=== PATIENT | female | born 1995 | race Caucasian/White ===

== ENCOUNTER 2019-08-07 14:55 | Inpatient (IN) ==
--- NOTE | 2019-08-07 11:28 | OB/GYN History & Physical ---
Date of Encounter: 08/07/19 Time of Encounter: 11:24 Assessment and Plan (1) 38 weeks gestation of Current visit: Yes Status: Acute (2) SROM (spontaneous rupture of membranes) Current visit: Yes Status: Acute Admit for expectant management. Intermittent monitoring with ambulation. Allow pt to pump breasts to stimulate contractions. Will consider pitocin augmentation if needed. Epidural if requested. Anticipate . History of Present Illness Chief complaint: SROM HPI: Ms. Roach is a 24 year old female presenting at 38w0d with c/o leaking clear fluid since 0600 this am. She reports she has been having irregular contractions for the last week and this has continued this am. She noticed that her underwear were wet when she got up around 0600 this am. This has been uncomplicated. She denies any other complaints. O positive Rubella and varicella immune Serologies negative GC/CT negative GBS negative Past Med Surg Social Fam HX - Past Medical History Medical history: no medical history - Past Surgical History Surgical History: no surgical history - Social History Smoking Status: Never smoker Alcohol use: none Drug use: none Obstetrical History - Pregnancies : 1 Medications and Allergies Lactobacillus Combo No.10 [Probiotic] 1 tab PO DAILY 08/07/19 [History] Pnv No.95/Ferrous Fum/Folic AC [ Caplet] 1 tab PO DAILY 08/07/19 [History] Review of System OB All systems PM: reviewed and no additional remarkable complaints except as stated Exam - Constitutional Constitutional: well developed, well nourished, no acute distress, average body habitus - HEENT HEENT: Mucus Membranes Moist - Neck Neck exam: normal inspection - Lungs Respiratory exam: CTAB - Cardiovascular Cardiovascular exam: RRR, +S1, +S2 - Abdomen Abdomen: Present: gravid, non tender - Extremities Extremities exam: normal inspection - Vulva Vulva: bilateral: normal - Cervix Dilation: 4 Effacement: 80 Station: -1 - Anus/Rectum Anus/Rectum: Present: normal perianal skin - Comments Comments: SSE +poolong, + nitrazine, + ferning Results All other labs normal.
--- NOTE | 2019-08-07 13:01 | Anesthesia Evaluation PreOp ---
Date of Encounter: 08/07/19 Time of Encounter: 12:50 - Past History Planned Operation: JIM Cardiac History: Denies any Significant Hx Pulmonary History: Denies Any Significant HX MACHINE WORKER History: Denies Any Significant HX Other Medical History: Other (history of chronic kidney infections) Anesthesia History: No Prior Anesthetic Complications, Past Anesthesia ([place] teeth, cystoscopy) : Yes Alcohol Use: none Drug use: none Medications and Allergies Lactobacillus Combo No.10 [Probiotic] 1 tab PO DAILY 08/07/19 [History] Pnv No.95/Ferrous Fum/Folic AC [ Caplet] 1 tab PO DAILY 08/07/19 [History] Allergy/AdvReac Type Severity Reaction Status Date / Time No Known Allergies Allergy Verified 08/07/19 11:25 - Meds/Allergy Pre-op Review Medications Reviewed: Yes Allergies Reviewed: Yes Beta Blockers on Current Med List: No Anesthesia Exam BP 136/79 P 88 R 16 T 97.9 Height: 5'7" Weight: 94.7kg NPO (# of Hours): 4 Pain Scale: 0 Pain Scale Used: Numeric (1 - 10) - HEENT Pupil (Motor): Pupils equal Mallampati: II Teeth: Normal Oral Opening: Greater than 3 - MACHINE WORKER LOC: Oriented MACHINE WORKER Motor: Normal RUE, Normal LUE, Normal RLE, Normal LLE, Normal Face MACHINE WORKER Sensory: Normal: RUE, LUE, RLE, LLE, Face - Cardiac Rhythm: Regular Murmur: None JVD: No Carotid Bruit: No - Pulmonary Breath Sounds: bilateral Clear Respiratory Effort: Symmetrical Anesthesia Assess/Plan ASA Score: 2 Level of consciousness: Cooperative, Oriented, Tranquil Anesthetic Plan: Epidural Autologous Blood: No Monitoring Plan: Standard Monitors Recovery Plan: Other
[~2019-08-07 14:55] MED LIST: *HR* FentaNYL (PF) 100 MCG/2 ML VIAL EP ONE; *HR* Nalbuphine 10 MG/ML AMPUL IVP PRN; EPHEDrine 50 MG/ML VIAL IVP PRN; Epidural Premix (fent/bupiv) 110 ML EP SCH; Famotidine 20 MG/2 ML VIAL IVP PRN; Metoclopramide 10 MG/2 ML VIAL IVP PRN; Naloxone 0.4 MG/ML INJ IVP PRN; Ondansetron 4 MG/2 ML VIAL IVP PRN; Ropivacaine/PF 0.2% 20 ML VIAL EP ONE
[2019-08-07] MEDS ORDERED: Oxytocin 20 units/ LR 1000 mL 20 UNIT/1,000 ML BAG IVC SCH ×2 (15:00→23:01)
[2019-08-07 15:25] LABS: Basophils % 0.2 %; Eosinophils # 0.1 K/mcL (0.0-0.6); Eosinophils % 0.5 %; Hematocrit 36.1 % (35.3-44.9); Hemoglobin 11.5 g/dL (11.5-15.4); Lymphocytes # 1.9 K/mcL (0.6-4.6); Mean Corpuscular HGB Conc 31.9 g/dL (31.6-35.5); Mean Corpuscular Hemoglobin 27.6 pg (28.0-33.3); Mean Corpuscular Volume 86.8 fL (83.0-100.0); Mean Platelet Volume 10.2 fL (9.4-12.4); Monocytes # 0.8 K/mcL (0.0-1.3); Monocytes % 6.1 %; Neutrophils # 9.5 K/mcL (1.6-8.9); Platelet Count 314 K/mcL (140-400); Red Blood Count 4.16 M/mcL (3.82-4.97); Red Cell Distribution Width 14.2 % (11.5-14.5); Segmented Neutrophils % 77.2 %; White Blood Count 12.3 K/mcL (4.3-11.1)
--- NOTE | 2019-08-07 16:03 | OB Labor Progress Note ---
Date of Encounter: 08/07/19 Time of Encounter: 16:02 Labor Progress Note - Subjective Subjective: Pt reports she is having more contractions. - Vital Signs Vital Signs: VSS - Cervix Cervix: 4/80/-1 - Heart Tones Heart Tones: Category I - [place]: irregular - Plan Plan: Will begin pitocin augmentation
[2019-08-07] MEDS: Ringers Solution, Lactated 1,000 ML IVC SCH ×2 (16:39→18:20)
[2019-08-07] MEDS ORDERED: *HR* FentaNYL (PF) 100 MCG/2 ML VIAL ONE (17:29)
--- NOTE | 2019-08-07 18:14 | Anesthesia Procedures ---
Date of Encounter: 08/07/19 Time of Encounter: 17:35 Procedures: Anesthesia - Epidural/Spinal Patient ID/Chart reviewed: Yes Patient examined: Yes OB Eval: Gestational age: 38 OB Eval: : 1 OB Eval: Hx Para: 0 OB Eval: Dilated at (cm): 7 OB Eval: Contractions: Non-stressed pattern Consent Obtained: Yes Supplemental Oxygen: None/Room Air Site Prep: Aseptic Technique, Sterile prep and drape, Povidone-Iodine 1% Patient position: upright Local Anesthetic: Lidocaine 1% Amount of Local Anesthetic used: 3 Touhy Needle Gauge: 18 Touhy Needle Depth (cm): 6 Catheter Depth at Skin (cm): 14 Test Dose (1.5% Lido + Epi): Volume given (mls): 3 Test Dose Result: Negative Loading Dose: Fentanyl (mcg): 100 Loading Dose: Other: Ropivicaine 0.2% 5ml, 3ml Normal saline Loading Dose Administered: Thru Catheter Infusion Med: 0.125% Bupivacaine w/ 2 mcg/ml Fentanyl Infusion Rate (mls/hr): [address]: Tegaderm, Tape Interspace Used: L4-L5 Loss of Resistance (SHAHEED): Yes Blood: No CSF: No Paresthesia: No Procedure: JIM placed 1st pass in upright position. SHAHEED achieved with normal saline. Catheter threaded with ease to 14cm at the skin. Test dose negative. Pt stated comforf following bolus dose administration. VSS throughout. Vitals + FHT's: 1735 BP 133/88 P 103 R 20 1800 BP 139/59 P 94 R 16
--- NOTE | 2019-08-07 20:48 | OB/GYN Procedure Note ---
Delivery - Delivery Date: 08/07/19 Provider: Adore Medina Intrapartum events: none Delivery induction: none Delivery augmentation: pitocin Delivery monitor: external FHT, external uterine Anesthesia: epidural Quantitated Blood Loss: 50 - Infant (s) A Infant Delivery Date: 08/07/19 Delivery Time: 20:17 Presentation: vertex Position: JAS Route of delivery: Gender: Female Viability: Viable at 1 minute: 8 at 5 mins: 9 Shoulder Dystocia: not encountered - Repair Laceration Description: None - Complications Delivery complications: none Delivery comments: Pt presented to L&D following SROM dulce 0600. She received an epidural and underwent pitocin augmentation. She then progressed well to over intact perineum for viable female infant with apgars 8 at one minute and 9 at five minutes. After pulsations ceased the cord was clamped and cut and the placenta delivered spontaneous and intact. EBL 50ml. No lacerations noted. - Disposition Mom disposition: stable in LDR disposition: stable in LDR
[2019-08-07] MEDS ORDERED: Lanolin 7 G OINT...G. TP PRN (23:01)
[2019-08-07] MEDS ORDERED: Acetaminophen 325 MG TABLET PO PRN (23:01)
[2019-08-07] MEDS ORDERED: Rho Immune Globulin 1,500 UNIT SYRINGE IM PRN (23:01)
[2019-08-07] MEDS ORDERED: Benzocaine/Menthol 56 GM AEROSOL SPRAY TP PRN (23:01)
[2019-08-08] MEDS: Ibuprofen 600 MG TABLET PO PRN ×2 (00:38→08:20)
[2019-08-08] MEDS ORDERED: Prenatal Vit/FA 1 EACH TABLET PO SCH (09:00)
--- NOTE | 2019-08-08 12:59 | Discharge Summary ---
Date of Encounter: 08/08/19 Time of Encounter: 12:56 - Discharge Diagnosis (1) Status post vaginal delivery Priority: Primary Status: Acute Comments: Patient meeting day one milestones. Pain well-controlled with prescribed medications. Voiding without difficulty, tolerating regular diet, bleeding light. No bowel movement yet. Anticipate discharge tonight (2) Breast feeding status of mother Priority: Secondary Status: Acute Comments: support as needed. We will provide breast pump prescription if needed. - Discharge Medications Prescriptions: New Breast Pump [BREAST PUMP] 1 each .ROUTE AD #1 each Docusate [Colace] 100 mg PO BID capsule Benzocaine/Menthol [place] [Dermoplast [place]] 1 appl TP QID PRN aerosol PRN Reason: See Comments Lanolin [Lansinoh] 1 appl TP Q4HR PRN oint...g. PRN Reason: Ibuprofen [Motrin] 600 mg PO Q6HR PRN #60 tablet PRN Reason: Cramping Acetaminophen [Tylenol] 650 mg PO Q6HR PRN tablet PRN Reason: Mild Pain Continued Pnv No.95/Ferrous Fum/Folic AC [ Caplet] 1 tab PO DAILY Lactobacillus Combo No.10 [Probiotic] 1 tab PO DAILY Home Medications: Lactobacillus Combo No.10 [Probiotic] 1 tab PO DAILY 08/07/19 [History] Pnv No.95/Ferrous Fum/Folic AC [ Caplet] 1 tab PO DAILY 08/07/19 [History] Acetaminophen [Tylenol] 650 mg PO Q6HR PRN tablet 08/08/19 [Rx] Benzocaine/Menthol [place] [Dermoplast [place]] 1 appl TP QID PRN aerosol 08/08/19 [Rx] Breast Pump [BREAST PUMP] 1 each .ROUTE AD #1 each 08/08/19 [Rx] Docusate [Colace] 100 mg PO BID capsule 08/08/19 [Rx] Ibuprofen [Motrin] 600 mg PO Q6HR PRN #60 tablet 08/08/19 [Rx] Lanolin [Lansinoh] 1 appl TP Q4HR PRN oint...g. 08/08/19 [Rx] Allergies/Adverse Reactions: Allergy/AdvReac Type Severity Reaction Status Date / Time No Known Allergies Allergy Verified 08/07/19 11:25 Data Procedures and tests throughout hospitalization: Laboratory Tests 08/07/19 12:30 WBC 12.3 H RBC 4.16 Hgb 11.5 Hct 36.1 MCV 86.8 MCH 27.6 L MCHC 31.9 RDW 14.2 Plt Count 314 MPV 10.2 Immature Gran % 1.0 Seg Neutrophils % 77.2 Lymphocytes % 15.0 Monocytes % 6.1 Eosinophils % 0.5 Basophils % 0.2 Neutrophils # 9.5 H Lymphocytes # 1.9 Monocytes # 0.8 Eosinophils # 0.1 Basophils # 0.0 Labs on day of discharge: Labs from last 24 hours 08/07/19 12:30 WBC 12.3 H RBC 4.16 Hgb 11.5 Hct 36.1 MCV 86.8 MCH 27.6 L MCHC 31.9 RDW 14.2 Plt Count 314 MPV 10.2 Immature Gran % 1.0 Seg Neutrophils % 77.2 Lymphocytes % 15.0 Monocytes % 6.1 Eosinophils % 0.5 Basophils % 0.2 Neutrophils # 9.5 H Lymphocytes # 1.9 Monocytes # 0.8 Eosinophils # 0.1 Basophils # 0.0 Date of admission: 08/07/19 14:55 Primary care physician: PCP NONE Consults: 08/07/19 23:01 Consult to [employer] [CONS] Routine Comment: Vaginal delivery, consult needed Discharging clinician: Fanny Jolley Anticipated date of discharge: 08/08/19 - Patient Status Disposition: Home, Self-Care Condition: Good Functional capacity at discharge: independent ambulation Overall status at discharge: patient is progressing back to baseline - Discharge Instructions Follow Up With: NONE,PCP [Primary Care Provider] - Adore Medina, CNM [Non-Partnered Physician] - - Diet and Activity Activity: increase activity as tolerated Diet: regular diet Hospital Course Reason for admission: active labor, rupture of membranes Delivery: Episiotomy: none Laceration: none Other procedures: none complications: none Discharge diagnosis: IUP at term delivered [place] baby: female Hospital course: Delivery Date: 08/07/19 Provider: Adore Medina Intrapartum events: none Delivery induction: none Delivery augmentation: pitocin Delivery monitor: external FHT, external uterine Anesthesia: epidural Quantitated Blood Loss: 50 - (s) Infant A Delivery Date: 08/07/19 Infant Delivery Time: 20:17 Presentation: vertex Position: JAS Route of delivery: Gender: Female Viability: Viable at 1 minute: 8 at 5 mins: 9 Shoulder Dystocia: not encountered - Repair Laceration Description: None - Complications Delivery complications: none Delivery comments: Pt presented to L&D following SROM dulce 0600. She received an epidural and underwent pitocin augmentation. She then progressed well to over intact perineum for viable female infant with apgars 8 at one minute and 9 at five minutes. After pulsations ceased the cord was clamped and cut and the placenta delivered spontaneous and intact. EBL 50ml. No lacerations noted. - Disposition Mom disposition: stable in LDR [place] disposition: stable in LDR Time Attestation: Total time spent providing and/or coordinating discharge services: Time Spent: Less than 30 minutes Exam - Constitutional Vitals: Temp Pulse Resp BP Pulse Ox 97.5 F L 71 16 111/56 98 08/08/19 08:24 08/08/19 08:24 08/08/19 08:24 08/08/19 08:24 08/08/19 08:24 General appearance IM: A&O X 3, pleasant, no acute distress, answers questions appropriately - Respiratory Respiratory exam: Present: CTAB. Absent: respiratory distress - Cardiovascular Cardiovascular exam IM: Present: RRR, +S1, +S2. Absent: irregular rhythm - GI/Abdominal GI/Abdominal exam IM: normal bowel sounds - Rectal Rectal exam: deferred - External exam: normal external exam Uterine Tone: Firm Uterus Position: At Umbilicus, Midline - Extremities Exam Extremities exam IM: Present: full ROM, normal capillary refill, normal inspection. Absent: calf tenderness - Neurological Exam Neurological exam: alert, normal gait, oriented X3
[2019-08-08 20:50] VITALS: BP 126/82
== END 2019-08-08 22:27 | disposition home or self-care (01) ==
LOC: 1NENULAB → 1NENUOBS 23:21
PROVIDERS: ADMIT Registered Nurse; ATTEND Registered Nurse

== ENCOUNTER 2021-03-22 17:48 | Inpatient (IN) ==
[2021-03-22] MEDS ORDERED: EPHEDrine 50 MG/ML VIAL IVP PRN (18:32)
[2021-03-22] MEDS ORDERED: Epidural Premix (fent/bupiv) 110 ML EP SCH (18:45)
[2021-03-22] MEDS ORDERED: Famotidine 20 MG/2 ML VIAL IVP PRN (20:30)
[2021-03-22] MEDS ORDERED: Ringers Solution, Lactated 1,000 ML IVC SCH (20:30)
[2021-03-22] MEDS ORDERED: Ondansetron 4 MG/2 ML VIAL IVP PRN (20:30)
[2021-03-22] MEDS ORDERED: Metoclopramide 10 MG/2 ML VIAL IVP PRN (20:30)
[2021-03-22] MEDS ORDERED: Naloxone 0.4 MG/ML INJ IVP PRN (20:30)
[2021-03-22 20:59] LABS: Basophils # 0.1 K/mcL (0.0-0.2); Basophils % 0.4 %; Eosinophils # 0.1 K/mcL (0.0-0.6); Eosinophils % 0.6 %; Hematocrit 37.8 % (35.3-44.9); Hemoglobin 12.1 g/dL (11.5-15.4); Immature Granulocytes % 1.4 % (0-4); Lymphocytes # 2.4 K/mcL (0.6-4.6); Lymphocytes % 16.6 %; Mean Corpuscular Hemoglobin 27.9 pg (28.0-33.3); Mean Corpuscular Volume 87.1 fL (83.0-100.0); Mean Platelet Volume 9.7 fL (9.4-12.4); Monocytes # 0.8 K/mcL (0.0-1.3); Monocytes % 5.3 %; Neutrophils # 11.1 K/mcL (1.6-8.9); Platelet Count 276 K/mcL (140-400); Red Blood Count 4.34 M/mcL (3.82-4.97); Red Cell Distribution Width 14.4 % (11.5-14.5); Segmented Neutrophils % 75.7 %; White Blood Count 14.6 K/mcL (4.3-11.1)
[2021-03-22 21:47] LABS: Adenovirus Not Detected (Not Detect); Coronavirus 229E Not Detected (Not Detect); Coronavirus HKU1 Not Detected (Not Detect); Coronavirus NL63 Not Detected (Not Detect); Coronavirus OC43 Not Detected (Not Detect); SARS-CoV-2 Not Detected (Not Detect)
[2021-03-22 21:48] LABS: Bordetella Pertussis Not Detected (Not Detect); Chlamydophila pneumoniae Not Detected (Not Detect); Human Metapneumovirus Not Detected (Not Detect); Human Rhinovirus/Enterovirus Not Detected (Not Detect); Influenza A Subtype 2009 H1 Not Detected (Not Detect); Influenza B Not Detected (Not Detect); Mycoplasma pneumoniae Not Detected (Not Detect); Parainfluenza Virus 1 Not Detected (Not Detect); Parainfluenza Virus 2 Not Detected (Not Detect); Parainfluenza Virus 3 Not Detected (Not Detect); Parainfluenza Virus 4 Not Detected (Not Detect); Respiratory Syncytial Virus Not Detected (Not Detect)
[2021-03-23] MEDS ORDERED: Oxytocin 20 units/ LR 1000 mL 20 UNIT/1,000 ML BAG IVC ONE ×2 (00:34→04:03)
[2021-03-23] MEDS ORDERED: *HR* HYDROcodone/Acet 5/325 mg TABLET PO PRN (05:03)
[2021-03-23] MEDS ORDERED: Acetaminophen 325 MG TABLET PO PRN (05:03)
[2021-03-23] MEDS ORDERED: Oxytocin 20 units/ LR 1000 mL 20 UNIT/1,000 ML BAG IVC SCH (05:03)
[2021-03-23] MEDS: Ibuprofen 600 MG TABLET PO PRN ×3 (05:29→18:36)
[2021-03-23] MEDS: Prenatal Vit/FA 1 EACH TABLET PO SCH (08:30)
[2021-03-24] MEDS: Ibuprofen 600 MG TABLET PO PRN ×2 (00:28→07:03)
[2021-03-24 07:54] VITALS: BP 111/69
[2021-03-24] MEDS: Prenatal Vit/FA 1 EACH TABLET PO SCH (08:06)
== END 2021-03-24 11:55 | disposition home or self-care (01) | DRG 807 ==
LOC: INTOOBSV 17:48 → 1NENULAB 17:48 → 1NENUOBS 03-23 07:30
PROVIDERS: ADMIT Advanced Practice Midwife; ATTEND Advanced Practice Midwife